=== PATIENT | female | born 1955 | race Caucasian/White ===

== ENCOUNTER 2017-05-02 15:14 | Emergency (ER) | payer BC, OTHER ==
[~2017-05-02] VITALS: Ht 167.6 cm; Wt 86.2 kg
[~2017-05-02 15:14] MED LIST: AC500T PO; CLPD75T PO; HYDR1TAB86 PO; LISI1TAB10 PO; MTF500T PO; POTA10TA36 PO; PROP60TA16 PO; PRV20T PO
--- OUTSIDE RECORDS SUMMARY | 2017-05-02 15:19 | XMS REPORT | Continuity of Care Document ---
Author Author [facility] Organization [facility] Address Unknown Phone Unavailable Allergies Medications Problems Procedures Results Encounters ACCT No. Visit Date/Time Discharge Status Pt. Type Provider Facility Loc./Unit Complaint [id number] 08/09/2013 11:43:00 2012 14:40:00 DIS Outpatient [id number] 08/08/2013 12:46:00 2012 23:59:59 CLS Outpatient
[2017-05-02] MEDS ORDERED: NEBI20TA2 PO (15:39)
[2017-05-02] MEDS ORDERED: LISI-552 PO (15:39)
--- NOTE | 2017-05-02 16:03 | ED Neurological Problem ---
General Chief Complaint: Neurological Problems Stated Complaint: NUMBNESS IN GROIN AND BOTH LEGS Nursing Triage Note: C/O NUMBNESS AND BURNING TO GROIN/PELVIC AREA WITH STANDING FOR LONG PERIODS SINCE JANUARY. Nursing Sepsis Screen: No Definite Risk Source: patient Exam Limitations: no limitations History of Present Illness Time seen by provider: 16:00 Initial Comments To ER with intermittent numbness and pain to her legs since December of this year. She states that the pain is in the front of her thighs and is worse when she walks described as a burning sensatino. She states she has a history of stenting to the arteries in her legs. This is been ongoing and getting worse since about December. She saw Dr. Ross for this and he became concerned when she mentioned groin numbness and bladder incontinence. Bladder incontinence/ leaking urine with stress (walking/coughing) has intermittent since December as well and she attributed this to her age. 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 . Timing/Duration: 1 week Severity: moderate Associated Symptoms: numbness in legs/feet, paresthesia Allergies and Home Medications Allergies Coded Allergies: No Known Drug Allergies (Unverified , 03/21/09) Home Medications Acetaminophen 500 Mg Tablet, 1,000 MG PO Q4H PRN for PAIN, (Reported) PRN PAIN Lisinopril 20 Mg Tablet, 20 MG PO DAILY, (Reported) Nebivolol HCl 20 Mg Tablet, 20 MG PO DAILY, (Reported) Constitutional: see HPI Eyes: No Symptoms Reported Ears, Nose, Mouth, Throat: no symptoms reported Respiratory: no symptoms reported Cardiovascular: no symptoms reported Genitourinary: no symptoms reported Musculoskeletal: see HPI, back pain, muscle pain, muscle cramps Skin: no symptoms reported Psychiatric/Neurological: No Symptoms Reported Past Amxuczp-Brukbx-Bxzclg Hx Patient Social History Alcohol Use: Denies Use Recreational Drug Use: No Smoking Status: Current Everyday Smoker Type Used: Cigarettes Recent Foreign Travel: No Contact w/Someone Who Travel: No Recent Infectious Disease Expo: No Recent Hopitalizations: No Surgeries History of Surgeries: Yes (VASCULAR STENT) Surgeries: Hysterectomy Respiratory History of Respiratory Disorde: No Cardiovascular History of Cardiac Disorders: Yes Cardiac Disorders: Coronary Artery Disease Neurological History of Neurological Disord: No Reproductive System Hx Reproductive Disorders: No Gastrointestinal History of Gastrointestinal Di: No Musculoskeletal History of Musculoskeletal Dis: Yes Endocrine History of Endocrine Disorders: No Cancer History of Cancer: No Psychosocial History of Psychiatric Problem: Yes Blood Transfusions History of Blood Disorders: No Physical Exam Vital Signs Vital Sign - Last 12Hours 05/02/17 15:32 Temp 97.9 Pulse 89 Resp 16 B/P (MAP) 196/96 Pulse Ox 95 Capillary Refill : Less Than 3 Seconds General Appearance: WD/WN, no apparent distress HEENT: PERRL/EOMI, normal ENT inspection Neck: non-tender, full range of motion Respiratory: no respiratory distress, no accessory muscle use Gastrointestinal: normal bowel sounds, non tender, soft Extremities: normal range of motion, non-tender Neurologic/Psychiatric: alert, normal mood/affect, oriented x 3 Crainal Nerves: normal hearing, normal speech Skin: normal color, warm/dry Progress/Results/Core Measures Results/Orders My Orders Orders - JUSTINO ARRIETA APRN Mri Lumbar Spine W/O Contrast (05/02/17 ) Vital Signs/I&O Vital Sign - Last 12Hours 05/02/17 15:32 Temp 97.9 Pulse 89 Resp 16 B/P (MAP) 196/96 Pulse Ox 95 Blood Pressure Mean: 129 Diagnostic Imaging Diagonstic Imaging: CT Comments NAME: SHONA ROSS MED REC#: [id number] PT STATUS: REG ER : 1955 PHYSICIAN: JUSTINO ARRIETA APRN ADMIT DATE: 05/02/17/ER Draft Date of Exam:05/02/17 MRI LUMBAR SPINE W/O CONTRAST PROCEDURE: MRI lumbar spine. TECHNIQUE: Multiplanar, multisequence MRI of the lumbar spine was performed without contrast. INDICATION: Back pain with bilateral lower extremity paresthesia. FINDINGS: The lumbar spinal curvature and alignment are within normal limits. Vertebral body heights and disc space are maintained; however, there is desiccation of the lumbar discs from L3-S1. There is very mild annular bulging of the L2-3 disc. Conus medullaris has a normal appearance at the L1 level. At L3-4, there is disc bulging and degenerative facet arthropathy with ligamentum flavum hypertrophy resulting in mild to moderate trefoil type spinal stenosis. At L4-5, there is also disc bulging with degenerative facet arthropathy resulting in moderate trefoil type spinal stenosis and minimal anterolisthesis of L4 on L5. At the L5-S1 level, there is also mild disc bulging and degenerative facet arthropathy without significant spinal or neural foraminal stenosis. IMPRESSION: Moderate trefoil-type spinal stenoses are present at L3-4 and L4-5 related to disc bulging, degenerative facet arthropathy and grade 1 anterolisthesis of L4 on L5. There is no evidence of marrow signal abnormality to indicate fracture. Conus medullaris is unremarkable at the L1 level. Dictated on workstation # [id number] Dict: 05/02/17 1732 Trans: 05/02/17 1747 [facility] [id number] Interpreted by: CHRISTY GEORGE MD Electronically signed by: Departure Impression Impression: Primary Impression: moderate spinal stenosis Additional Impression: Intermittent claudication of both lower extremities due to atherosclerosis Disposition: 01 HOME, SELF-CARE Condition: Stable Departure-Patient Inst. Decision time for Depature: 17:50 Referrals: KIKE FARMER MD (PCP/Family) Primary Care Physician MARIO RYAN MD Patient Instructions: Spinal Stenosis Add. Discharge Instructions: 1. You do have some moderate narrowing of your spinal canal that this is not the cause of your symptoms. Follow-up with Dr. Ross. You should also follow- up with Dr. Ryan in regards to your urinary incontinence. All discharge instructions reviewed with patient and/or family. Voiced understanding. Copy Copies To 1: Vero ROSS MD, PETER J APRN May 02, 2017 16:03
--- NOTE | 2017-05-02 17:47 | Diagnostic Imaging Report ---
PROCEDURE: MRI lumbar spine. TECHNIQUE: Multiplanar, multisequence MRI of the lumbar spine was performed without contrast. INDICATION: Back pain with bilateral lower extremity paresthesia. FINDINGS: The lumbar spinal curvature and alignment are within normal limits. Vertebral body heights and disc space are maintained; however, there is desiccation of the lumbar discs from L3-S1. There is very mild annular bulging of the L2-3 disc. Conus medullaris has a normal appearance at the L1 level. At L3-4, there is disc bulging and degenerative facet arthropathy with ligamentum flavum hypertrophy resulting in mild to moderate trefoil type spinal stenosis. At L4-5, there is also disc bulging with degenerative facet arthropathy resulting in moderate trefoil type spinal stenosis and minimal anterolisthesis of L4 on L5. At the L5-S1 level, there is also mild disc bulging and degenerative facet arthropathy without significant spinal or neural foraminal stenosis. IMPRESSION: Moderate trefoil-type spinal stenoses are present at L3-4 and L4-5 related to disc bulging, degenerative facet arthropathy and grade 1 anterolisthesis of L4 on L5. There is no evidence of marrow signal abnormality to indicate fracture. Conus medullaris is unremarkable at the L1 level. Dictated by: Dictated on workstation # [id number]
[2017-05-02 17:54] VITALS: BP 185/96
== END 2017-05-02 17:54 | disposition home or self-care (01) ==
LOC: EDUNIT# 15:14 → ER 15:16
DX: M48.06 Spinal stenosis, lumbar region (principal); I70.213 Atherosclerosis of native arteries of extremities with intermittent claudication, bilateral legs; I25.10 Atherosclerotic heart disease of native coronary artery without angina pectoris; F17.210 Nicotine dependence, cigarettes, uncomplicated; Z90.710 Acquired absence of both cervix and uterus
CPT/HCPCS: 72148; 99283

== ENCOUNTER → 2017-05-31 | Outpatient (CLI) | payer BC ==
[~2017-05-31] MED LIST changes: +LISI-552 PO; +NEBI20TA2 PO
--- NOTE | 2017-05-31 11:33 | Diagnostic Imaging Report ---
EXAMINATION: Renal duplex vascular ultrasound. INDICATION: Persistent hypertension. FINDINGS: The right kidney is 10.9 and the left kidney is 11.1 cm in length. There is no hydronephrosis or focal lesion. The renal artery velocities are: 90, 170, and 74 cm/s from the proximal to distal on the right side and 67, 68, and 65 cm/s from the proximal to distal on the left. The resistive index is 0.54 to 0.68 in the right kidney and in the range of 0.6 to 0.64 on the left side. The abdominal aorta velocity is 60 cm/s. IMPRESSION: In the mid right renal artery, there is mild to moderate elevation of flow velocity to 170 cm/s which may reflect an underlying mild to moderate stenosis. This is unlikely to relate to a high-grade stenosis, however. Correlation with CTA may better evaluate the renal arteries, if needed. Dictated by: Dictated on workstation # [id number]
== END ==
LOC: RAD 09:43
PROVIDERS: ATTEND Nurse Practitioner Family
DX: I10 Essential (primary) hypertension (principal)
CPT/HCPCS: 93975

== ENCOUNTER → 2017-06-28 | Outpatient (CLI) | payer BC ==
[~2017-06-28] MED LIST changes: +IOHEXOL 350 MG/ML 100 ML (OMNIPAQUE 350) VIAL IV ONE; +NS 100 ML (IVPB) BAG IV ONE
[2017-06-28 09:32] LABS: BLOOD UREA NITROGEN 10 MG/DL (7-18); BUN/CREATININE RATIO 14; CREATININE SERUM 0.74 MG/DL (0.60-1.30); GFR ESTIMATED > 60
--- NOTE | 2017-06-28 12:31 | Diagnostic Imaging Report ---
EXAMINATION: CT angiogram of the renal arteries. INDICATION: Increased velocity on ultrasound seen in the right renal artery. TECHNIQUE: Coronal MIP reconstruction technique is performed. 100 mL of Omnipaque 350 is administered intravenously. COMPARISON: 08/08/2013 exam is reviewed. FINDINGS: The main renal artery is seen on both sides with no evidence of stenosis. There is an accessory renal artery that is too small to accurately evaluate but appears to be patent just above the main renal artery on the right side and there are two small accessory renal arteries on the left also above the main left renal artery too small to accurately evaluate but appears to be patent. The SMA and the celiac trunk are patent. The LAINA is patent. The abdominal aorta is completely occluded just distal to the LAINA level. Bilateral occluded common iliac stents are seen with reconstitution of flow within the distal aspect of the left common iliac stent noted. The entire course of the right common iliac artery and the visualized portion of the proximal right external iliac artery is occluded. The unenhanced phase demonstrates no renal stones. The renal parenchyma demonstrates lobulated appearance in the upper pole of the left kidney with no definite mass. No hydronephrosis. The liver demonstrates mild fatty infiltration with fluid attenuation lesions up to 1 cm in size in the left hepatic lobe seen suggestive of cysts. The gallbladder, the spleen, and the pancreas appear unremarkable. The adrenals are slightly thickened with no focal mass. The osseous structures appear grossly unremarkable. IMPRESSION: 1. 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 The distal aspect of the left common iliac artery demonstrates reconstitution apparently from the left internal iliac artery. The visualized proximal right external and right internal iliac arteries are occluded. 2. No evidence of renal artery stenosis. The aortic occlusion findings on this exam were called to Ms. Xiomy Narayan, the nurse practitioner taking care of the patient at time of dictation. Dictated by: Dictated on workstation # [id number]
== END ==
LOC: RAD 09:00
PROVIDERS: ATTEND Nurse Practitioner Family
DX: I74.09 Other arterial embolism and thrombosis of abdominal aorta (principal); I74.5 Embolism and thrombosis of iliac artery
CPT/HCPCS: 36415; 74175; 82565; 84520

== ENCOUNTER → 2021-06-03 | Outpatient (CLI) | payer BC, MEDICARE ==
[~2021-06-03] MED LIST changes: -IOHEXOL 350 MG/ML 100 ML (OMNIPAQUE 350) VIAL IV ONE; -LISI-552 PO; +LISI20TA26 PO; -NS 100 ML (IVPB) BAG IV ONE
[2021-06-03 10:22] LABS: ABSOLUTE RETIC # 97 10e9/uL (24-90); BASOPHILS # (AUTO) 0.1 10^3/uL (0.0-0.1); BASOPHILS % (AUTO) 1 % (0-10); EOSINOPHILS # (AUTO) 0.4 10^3/uL (0.0-0.3); EOSINOPHILS % (AUTO) 2 % (0-10); HEMATOCRIT 43 % (35-52); HEMOGLOBIN 14.7 g/dL (11.5-16.0); LYMPHOCYTES # (AUTO) 3.4 10^3/uL (1.0-4.0); LYMPHOCYTES % (AUTO) 22 % (12-44); MEAN CORPUSCULAR HEMOGLOBIN 32 pg (25-34); MEAN CORPUSCULAR HGB CONC 34 g/dL (32-36); MEAN CORPUSCULAR VOLUME 92 fL (80-99); MEAN PLATELET VOLUME 10.5 fL (9.0-12.2); MONOCYTES # (AUTO) 0.9 10^3/uL (0.0-1.0); MONOCYTES % (AUTO) 6 % (0-12); NEUTROPHILS # (AUTO) 10.8 10^3/uL (1.8-7.8); NEUTROPHILS % (AUTO) 69 % (42-75); PLATELET COUNT 346 10^3/uL (130-400); RETICULOCYTE % 2.09 % (0.50-2.40); WHITE BLOOD COUNT 15.7 10^3/uL (4.3-11.0)
[2021-06-03 13:36] LABS: BASOPHILS % (MANUAL) 0 %; EOSINOPHILS % (MANUAL) 2 %; LYMPHOCYTES % (MANUAL) 20 %; MONOCYTES % (MANUAL) 3 %; NEUTROPHILS % (MANUAL) 75 %
[2021-06-03 13:37] LABS: RBC MORPH NORMAL
== END ==
LOC: LAB 09:59
PROVIDERS: ATTEND Nurse Practitioner Family
DX: D72.829 Elevated white blood cell count, unspecified (principal)
CPT/HCPCS: 36415; 85007; 85027; 85045; 85055

== ENCOUNTER → 2023-01-20 | Outpatient (CLI) | payer MEDICARE ==
[2023-01-20 10:24] LABS: ABSOLUTE RETIC # 103 10e9/uL (24-90); BASOPHILS # (AUTO) 0.1 10^3/uL (0.0-0.1); BASOPHILS % (AUTO) 1 % (0-10); EOSINOPHILS # (AUTO) 0.4 10^3/uL (0.0-0.3); EOSINOPHILS % (AUTO) 3 % (0-10); HEMATOCRIT 44 % (35-52); LYMPHOCYTES # (AUTO) 3.2 10^3/uL (1.0-4.0); LYMPHOCYTES % (AUTO) 25 % (12-44); MEAN CORPUSCULAR HEMOGLOBIN 31 pg (25-34); MEAN CORPUSCULAR HGB CONC 34 g/dL (32-36); MEAN CORPUSCULAR VOLUME 89 fL (80-99); MEAN PLATELET VOLUME 10.5 fL (9.0-12.2); MONOCYTES # (AUTO) 0.9 10^3/uL (0.0-1.0); MONOCYTES % (AUTO) 7 % (0-12); NEUTROPHILS % (AUTO) 63 % (42-75); PLATELET COUNT 356 10^3/uL (130-400); WHITE BLOOD COUNT 12.7 10^3/uL (4.3-11.0)
[2023-01-20 10:26] LABS: BAND NEUTROPHILS 0 %; BASOPHILS % (MANUAL) 0 %; EOSINOPHILS % (MANUAL) 3 %; LYMPHOCYTES % (MANUAL) 33 %; MONOCYTES % (MANUAL) 3 %; NEUTROPHILS % (MANUAL) 61 %; RBC MORPH NORMAL
== END ==
LOC: LAB 09:34
PROVIDERS: ATTEND Family Medicine
DX: D72.829 Elevated white blood cell count, unspecified (principal)
CPT/HCPCS: 36415; 85007; 85027; 85045; 85055